=== PATIENT | female | born 1995 | race Caucasian/White ===

== ENCOUNTER 2023-03-09 14:41 | Day surgery (SDC) | payer OTHER ==
[2023-03-09 15:08] VITALS: BMI 24.2
[2023-03-09 16:48] LABS: Bilirubin Neg (Negative); Blood, Urine 25 (Negative); Clarity Cloudy (Clear); Glucose, Urine (Dipstick) Normal (Negative); Ketone, Urine Negative (Negative); Leukocyte 25 (Negative); Nitrite Negative (Negative); Protein, Urine (Dipstick) 15 mg/dl (Neg-Trace); Urobilinogen Normal mg/dL (Less than 2)
[2023-03-09] MEDS ORDERED: Acetaminophen 325 MG TAB PO SCH (17:00)
[2023-03-09 17:10] LABS: Bacteria/HPF 2+ HPF (None Seen); CAUTI Indications for Culture Pregnancy; Mucous/LPF 3+ LPF (<2+); Squamous Epithelial 21-50 HPF (0-3)
[2023-03-09 17:13] LABS: Urine Culture Reflex Yes Yes
== END 2023-03-09 17:30 | disposition home or self-care (01) ==
LOC: CSHLD/OP 14:41
PROVIDERS: ATTEND Family Medicine
DX: O99.891 Other specified diseases and conditions complicating pregnancy (principal); O99.013 Anemia complicating pregnancy, third trimester; O47.03 False labor before 37 completed weeks of gestation, third trimester; D50.9 Iron deficiency anemia, unspecified; R10.9 Unspecified abdominal pain; Z3A.33 33 weeks gestation of pregnancy; Z79.899 Other long term (current) drug therapy
CPT/HCPCS: 76815; 81001; 87086; 99282

== ENCOUNTER 2023-04-20 18:00 | Inpatient (IN) | payer OTHER ==
[2023-04-21] MEDS ORDERED: Promethazine HCl 25 MG/ML VIAL IM PRN (08:23)
[2023-04-21] MEDS ORDERED: Ondansetron PF 4 MG/2 ML Vial IVP PRN (08:23)
[2023-04-21] MEDS ORDERED: hydrALAZINE 20 MG/ML VIAL SLOW IVP PRN (08:23)
[2023-04-21] MEDS ORDERED: Methylergonovine 0.2 MG/ML VIAL IM PRN (08:24)
[2023-04-21] MEDS ORDERED: Tranexamic Acid 1,000 MG/10 ML VIAL IVP PRN (08:24)
[2023-04-21] MEDS ORDERED: Carboprost 250 MCG/ML AMP IM PRN (08:24)
[2023-04-21] MEDS ORDERED: Docusate 100 MG CAP PO PRN (08:24)
[2023-04-21] MEDS ORDERED: Diphenoxylate HCl/Atropine Tablet PO PRN (08:24)
[2023-04-21] MEDS ORDERED: Misoprostol 200 MCG TAB PR PRN (08:24)
[2023-04-21 08:42] VITALS: BMI 24.7
[2023-04-21 08:53] LABS: Hematocrit 30.4 % (34.9-44.5); Hemoglobin 10.3 g/dL (12.0-15.5); Mean Corpuscular HGB CONC 33.9 g/dL (32.0-36.0); Mean Corpuscular Hemoglobin 29.6 pg (27.0-33.0); Mean Corpuscular Volume 87.4 fl (81.6-98.3); Mean Platelet Volume 11.3 fl (7.4-10.4); Platelet Count 295 10x3/uL (150-450); RBC Distribution Width 13.6 % (11.5-14.5); Red Blood Cell (RBC) Count 3.48 10x6/uL (3.90-5.03); White Blood Cell (WBC) Count 10.3 10x3/uL (3.5-10.5)
[2023-04-21] MEDS: Oxytocin 30 units/NS 500 ML 500 ML IV SCH ×2 (08:57→09:06)
[2023-04-21] MEDS: Lactated Ringer's 1,000 ML IV SCH (08:57)
[2023-04-21 09:16] LABS: HBSAg Index 0.36 S/CO (0-0.99); Hep B Surf Ag - L&D Non-Reactive S/CO (NonReactive)
[2023-04-21 09:17] LABS: Syphilis Antibody Nonreactive (Nonreactive); Syphilis Antibody Index 0.04 S/CO (<1.00 Non-Reactive)
[2023-04-21] MEDS: fentaNYL 50 mcg/mL 1 mL Vial SLOW IVP PRN (15:14)
[2023-04-21] MEDS: Lidocaine 1% (PF) 30 ML VIAL SC PRN (16:52)
[2023-04-21] MEDS ORDERED: Boostrix 0.5 ML (Tdap) VIAL (>/=7 yrs of age) IM ONE (16:55)
[2023-04-21] MEDS ORDERED: Milk Of Magnesia 30 ML UDCUP PO PRN (16:55)
[2023-04-21] MEDS ORDERED: Bisacodyl 10 MG SUPP PR PRN (16:55)
[2023-04-21] MEDS ORDERED: Lanolin Ointment 7 GM TUBE TOP PRN (16:55)
[2023-04-21] MEDS: Ibuprofen 800 MG TAB PO PRN (17:23)
[2023-04-21] MEDS: Ferrous Sulfate 325 MG TAB PO SCH (20:43)
[2023-04-21] MEDS: Ibuprofen 800 MG TAB PO SCH (21:17)
[2023-04-22] MEDS: Acetaminophen 500 MG TAB PO PRN (02:24)
[2023-04-22] MEDS: Prenatal Vitamin 1 TAB PO SCH (08:30)
[2023-04-22] MEDS: Benzocaine-Menthol 82.5 ML CAN TOP PRN (12:49)
[2023-04-22 20:34] VITALS: BP 111/67; TEMP 97.9
== END 2023-04-22 20:55 | disposition home or self-care (01) | DRG 807 ==
LOC: CSHLD 04-21 07:11 → CSHPP 04-21 19:50
PROVIDERS: ADMIT Obstetrics & Gynecology; ATTEND Obstetrics & Gynecology
PROC: 10E0XZZ Delivery of Products of Conception, External Approach (ICD-10-PCS; principal; 2023-04-21)
PROC: 0KQM0ZZ Repair Perineum Muscle, Open Approach (ICD-10-PCS; 2023-04-21)
DX: O99.02 Anemia complicating childbirth (principal); Z37.0 Single live birth; O76 Abnormality in fetal heart rate and rhythm complicating labor and delivery; Z3A.39 39 weeks gestation of pregnancy; O69.81X0 Labor and delivery complicated by cord around neck, without compression, not applicable or unspecified; O70.1 Second degree perineal laceration during delivery
CPT/HCPCS: 85027; 86780; 86850; 86900; 86901; 87340; J2001; J2590; J3010; J7120